=== PATIENT | male | born 1960 | race Hispanic/Latino ===

== ENCOUNTER 2024-05-23 16:38 | Emergency (ER) | payer BC, SELFPAY ==
[2024-05-23 17:07] VITALS: BP 98/62; PULSE 68; RESP 14; TEMP 36.4; O2SAT 100
--- NOTE | 2024-05-23 21:05 | PC.NURSE ---
called house sup for 24french catheter.
[2024-05-23] MEDS: LIDOCAINE HCL 2% GEL UROJET 10 ML PKG (21:44)
[2024-05-23 22:10] VITALS: BP 131/83; PULSE 70; RESP 20; TEMP 36.8; O2SAT 98
--- NOTE | 2024-05-23 22:57 | ED.MALEGU ---
HPI - Male Genitourinary General Chief complaint: Urogenital-Male Stated complaint: catheter Time Seen by Provider: 05/23/24 20:27 History of Present Illness HPI Narrative: Patient here with concerned that Lewis is malfunctioning. Just had placed yesterday. Has not been draining; has some lower abdominal pressure. Related Data Allergies Allergy/AdvReac Type Severity Reaction Status Date / Time No Known Allergies Allergy Verified 05/23/24 21:44 Review of Systems Review of Systems: All systems reviewed & are unremarkable except as noted in HPI and below Exam Narrative: EXAMINATION OF ORGAN SYSTEMS/BODY AREAS: Constitutional: Vital signs per nursing GENERAL:[No acute distress, non-toxic appearing.] HEAD: Normal with no signs of head trauma. EYES: EOMI, conjunctiva normal ENT: Hearing grossly intact LUNGS: Nonlabored breathing. HEART: [Regular rate and rhythm] ABD: [Soft], no severe distention or tenderness EXT: Left lower extremity amputation SKIN: [No rashes or lesions.] NEURO: [Alert and oriented x 3. No gross focal sensory or strength deficits.] PSYCH: Normal affect Course Vital Signs Vital signs: Vital Signs Temperature 97.6 F 05/23/24 17:07 Pulse Rate 68 05/23/24 17:07 Respiratory Rate 14 05/23/24 17:07 Blood Pressure 98/62 L 05/23/24 17:07 Pulse Oximetry 100 05/23/24 17:07 Oxygen Delivery Room Air 05/23/24 17:07 Temperature 98.2 F 05/23/24 22:10 Pulse Rate 70 05/23/24 22:10 Respiratory Rate 20 05/23/24 22:10 Blood Pressure 131/83 05/23/24 22:10 Pulse Oximetry 98 05/23/24 22:10 Oxygen Delivery Room Air 05/23/24 17:07 MDM - Male Genitourinary MDM Narrative Medical decision making narrative: Patient presenting with Lewis dysfunction. On evaluation does not appear to be draining. Lewis was replaced and now draining clear urine. Stable for discharge with outpatient follow-up to Urology. Discharge Plan Discharge Clinical Impression: Acute retention of urine Patient Disposition: Home, Self-Care Condition: Stable Instructions: Antibiotic Form, Lewis Catheter Placement and Care (ED) Additional Instructions: Please follow-up with your urologist, he can return to the emergency room for any further issues. Follow-up/Referrals: Ampadu,MD Johny [Primary Care Provider] -
== END 2024-05-23 23:40 ==
PROVIDERS: Emergency Provider Emergency Medicine; PCP Internal Medicine
DX: T83.098A Other mechanical complication of other urinary catheter, initial encounter (principal); R33.9 Retention of urine, unspecified
CPT/HCPCS: 51702; 99283